=== PATIENT | female | born 1965 | race Caucasian/White ===

== ENCOUNTER → 2024-05-27 | Outpatient (REF) | payer OTHER ==
[~2024-05-27] MED LIST: BACTRIM DS TAB1 EACH PO; MULTI-VITAMIN1 EACH PO
== END ==
LOC: RAD 16:01 → EDSTATUS 06-03 09:00
PROVIDERS: ATTEND Urology
DX: Z01.810 Encounter for preprocedural cardiovascular examination (principal); Z01.818 Encounter for other preprocedural examination
CPT/HCPCS: 74018; 93005